=== PATIENT | female | born 1980 | race Caucasian/White ===

== ENCOUNTER 2016-11-19 09:11 | Emergency (ER) | payer BC ==
[2016-11-19 09:44] LABS: Urine Bilirubin Negative (NEGATIVE); Urine Blood 50 /ul (NEGATIVE); Urine Ketone Negative (NEGATIVE); Urine Protein Negative (NEGATIVE); Urine Urobilinogen Normal (NORMAL); Urine pH 6.5 pH (5.0-7.0)
[2016-11-19 09:54] LABS: Urine Appearance Cloudy; Urine Bacteria 3+; Urine Color Yellow; Urine Nitrite Positive (NEGATIVE)
[2016-11-19] MEDS ORDERED: IBUPROFEN 600 MG TABLET PO ONE (09:57)
--- NOTE | 2016-11-19 09:58 | ERNOTE ---
Abdominal HPI - Narrative Date of Service: 11/19/16 - General Chief Complaint: Abdominal Pain Time Seen by Provider: 11/19/16 09:47 Source: patient, RN notes reviewed Exam Limitations: no limitations - Immun/Allergies/Home Medications Immunizatons: IMMUNIZATION HX Immunizations Up to Date Yes History of Influenza Vaccine No Hx Pneumococcal Vaccination No Allergies/Adverse Reactions: Allergies No Known Allergies Allergy (Verified 11/19/16 09:20) Home Medications: HOME MEDICATIONS Ibuprofen [Motrin] 600 mg PO Q6H PRN #14 tab 11/19/16 [Last Taken Unknown] Sulfamethoxazole/Trimethoprim [Bactrim Ds] 1 tab PO BID #6 tab 11/19/16 [Last Taken Unknown] - Pain Score Pain Score #1 Pain Score: 5 Abdominal Pain Onset Location: other - left flank area Pain Radiation: LLQ - History of Present Illness Narrative: 36 year old female complains of constant stabbing pain left flank area radiating down into left groin area since 1930 last night. States progressively worsening pain, worse when taking deep breath in and twisting type movements. Took ASA and went to bed, awoke 0230 with worsening pain. + fever, chills, body aches. Negative dysuria/hematuria or vaginal discharge. Denies NVD Date (Duration): 11/18/16 Time (Timing): 19:30 Timing: constant Quality: moderate, stabbing Activities at Onset: none Modifying Factors - (Improves): Present: rest, lying down Modifying Factors - (Worsens): Present: coughing, movement, exercise Associated Symptoms: Present: back pain, fever/chills. Absent: chest pain, diaphoresis, diarrhea-gross blood, diarrhea-mucous, fatigue, heartburn, nausea, vomiting, shortness of breath Prior Abdominal Problems: Present: none. Absent: recent trauma Prior Treatment: Absent: recently seen, treated by physician, recently hospitalized, currently on antibiotics Review of Systems - Review of Systems Constitutional: Present: fever, chills. Absent: recent illness, diaphoresis, weakness, fatigue, malaise, weight loss EYE: Present: no symptoms reported ENT: Present: no symptoms reported. Absent: nose pain, nose congestion, nasal drainage, sore throat, throat swelling Respiratory: Absent: no symptoms reported, shortness of breath, cough Cardiology: Present: no symptoms reported. Absent: chest pain, edema Gastrointestinal/Abdominal: Absent: nausea, vomiting, diarrhea, constipation, abdominal pain, eating less, drinking less Genitourinary: Present: no symptoms reported. Absent: pain, dysuria, hematuria Musculoskeletal: Present: back pain. Absent: muscle pain, muscle stiffness, neck pain Skin: Absent: no symptoms reported, rash Neurological: Present: no symptoms reported Endocrine: Present: no symptoms reported. Absent: increased thirst, increased urine, unexplained weight gain, unexplained weight loss Hematologic/Lymphatic: Absent: no symptoms reported, swollen glands Psych: Present: no symptoms reported - Patient's Past Medical History Patient History - Medical: Kidney stone, Other Patient History - Cardiac/Respiratory: No pertinent hx Patient History - Cancer: No Hx of Cancer Patient History - Surgical Procedures: D & C Patient History - Other: None LMP (Calendar): 01/28/16 - Family History Father Family History - Medical: Diabetes Type 2, Other Family History - Cardiac/Respiratory: No pertinent hx Grandfather-Maternal Family History - Medical: Other Family History - Cardiac/Respiratory: CHF, Deep Vein Thrombosis, Hypertension Grandfather-Paternal Family History - Medical: No pertinent hx Family History - Cardiac/Respiratory: Sleep Apnea Grandmother-Maternal Family History - Medical: , Arthritis, Osteoporosis, Other Family History - Cardiac/Respiratory: No pertinent hx Grandmother-Paternal Family History - Medical: Other Family History - Cardiac/Respiratory: CHF, Deep Vein Thrombosis, Hypertension Mother Family History - Medical: Anxiety, Other Family History - Cardiac/Respiratory: Hypertension - Social History Living Situations: spouse Abuse History: No History of abuse Psych History: Hx of Anxiety Smoking Status: Never smoker Have you smoked in the past 12 months: No Do you dip or chew tobacco: No Alcohol Use: rarely Drug Use: other - Immunizations Immunizations Up to Date: Yes Hx Pneumococcal Vaccination: No History of Influenza Vaccine: No Physical Exam - Physical Exam General Appearance: Present: wd/wn, alert, no apparent distress Eye Exam: Normal inspection: bilateral, PERRL: bilateral Ears, Nose, Throat: Present: hearing grossly normal, normal pharynx. Absent: dry mucous membranes Neck: Present: normal inspection, nontender, supple, full range of motion. Absent: lymphadenopathy (R), lymphadenopathy (L) Respiratory: Present: no respiratory distress, normal breath sounds, no accessory muscle use, chest nontender, lungs clear. Absent: respiratory distress Cardiovascular/Chest: Present: regular rate, rhythm, no murmur, normal peripheral pulses. Absent: extra beats, gallop/S3, gallop/S4 Peripheral Pulses: N=norm/S=strong/W=weak/B=bound/A=absent: Radial (R): Normal, Radial (L): Normal Gastrointestinal/Abdominal: Present: normal bowel sounds, nontender, nondistended, soft, no organomegaly, tenderness - pain radiates into LLQ Rectal Exam: Present: deferred Back Exam: Present: normal inspection, normal range of motion, CVA tenderness (L ). Absent: no vertebral tenderness, CVA tenderness (R) Extremity Exam: Present: normal inspection, non-tender, no edema, normal range of motion Neurological Exam: Present: alert, oriented, normal mood/affect, no motor/ sensory deficits Skin Exam: Present: normal color, warm/dry. Absent: diaphoresis, cyanosis Lymphatic Exam: Present: no adenopathy Pelvic Exam: Present: deferred ED Progress - Results and Orders Patient's Lab Results:: I have reviewed the patient's lab results. - Vital Signs Patient's Vital Signs:: I have reviewed the patient's vital signs. Vital Signs: Vital Signs 11/19/16 09:17 Temperature 37.1 C Pulse Rate 92 Respiratory 14 Rate Blood Pressure 135/85 O2 Sat by Pulse 98 Oximetry - Progress/Reassessment Chief Complaint: Abdominal Pain Departure - Departure Clinical Impression: Urinary tract infection Qualifiers: Urinary tract infection type: site unspecified Hematuria presence: with hematuria Qualified Code(s): N39.0 - Urinary tract infection, site not specified Disposition: Home self-care Condition: Stable Instructions: Urinary Tract Infection, Adult, [id number] Additional Instructions: Increase fluid intake Prescriptions: Ibuprofen [Motrin] 600 mg PO Q6H PRN #14 tab PRN Reason: Pain Sulfamethoxazole/Trimethoprim [Bactrim Ds] 1 tab PO BID #6 tab
--- OUTSIDE RECORDS SUMMARY | 2016-11-19 10:00 | XMS REPORT | Continuity of Care Document ---
:1980 Demographics Address [address] [place] [address] Phone Unavailable Preferred Language Unknown Marital Status Unknown Moravian Affiliation Unknown Race Unknown Ethnic Group Unknown Author Organization [facility] ([facility]) [place] [address] Phone [phone] Care Team Providers Name Role Phone Unavailable Primary Care Provider Unavailable Source Comments This disclosure is being made pursuant to the Care Everywhere program, applicable federal and state laws, and may not contain all informaitonavailable regarding this patient.[facility] ([facility]) Active Allergies and Adverse Reactions Not on File Current Medications Not on file Active Problems Not on file Social History Tobacco Use Types Packs/Day Years Used Date Never Assessed Plan of Care Health Maintenance Due Date Last Done Comments Hepatitis B Vaccine (1 of 3 - Primary Series) 1980 Tdap Vaccine 1989 Lipid Disorder Screening 1996 MMR Vaccine 1996 Td Vaccine 1996 Cervical Cancer Screening 2008 Influenza Vaccine: Seasonal (#1) 05/02/2016 Results from Last 3 Months Not on file
[2016-11-19] MEDS ORDERED: IBUPROFEN 600 MG TABLET ONE (10:02)
[2016-11-19 10:15] LABS: Hematocrit 40.5 % (37.0-47.0); Hemoglobin 13.5 gm/dL (12.5-16.0); Mean Cell Volume 92.7 fl (78-100); Mean Corpuscular Hemoglobin 30.9 pg (27-31); Mean Corpuscular Hgb Conc 33.3 g/dl (32-36); Mean Platelet Volume 9.4 fl (6.0-9.5); Neutrophil # 11.3 K/mm3 (1.3-6.0); Neutrophil % 83.7 % (42-75.0); Platelet Count 291 K/mm3 (150-450); Red Blood Count 4.37 M/mm3 (4.2-5.4); Red Cell Distribution Width 13.9 % (11.5-14.0); White Blood Count 13.5 K/mm3 (4.0-10.5)
[2016-11-19 10:28] LABS: Anion Gap 11.1 mmol/L (6.8-13.8); BUN/Creatinine Ratio 11.6 (9.0-21.6); Calcium * 9.4 mg/dL (7.9-10.9); Carbon Dioxide 29.4 mmol/L (24-32.6); Estimated Creat Clear 107.5; Potassium 4.5 mmol/L (3.4-4.6)
[2016-11-19 11:33] VITALS: BP 137/82
== END 2016-11-19 11:32 | disposition home or self-care (01) ==
LOC: ER 09:11
DX: N39.0 Urinary tract infection, site not specified (principal); Z87.442 Personal history of urinary calculi